=== PATIENT | female | born 1990 | race African-American/Black ===

== ENCOUNTER 2016-10-20 10:36 | Emergency (ER) | payer OTHER ==
[~2016-10-20] VITALS: Ht 154.9 cm; Wt 69.0 kg
[~2016-10-20 10:36] MED LIST: ACYCLOVIR800 MG PO; ALPRAZOLAM0.25 MG; AMBIEN5 MG; AMOXICILLIN500 MG PO; BACLOFEN10 MG PO; BACTRIM DS1 TAB PO; BENADRYL25 MG OR; BENZOYL PER EX; BENZOYL PEROXIDE TOP; CEPH500C57 OR; CIPRO500 MG OR; CLEOCIN VAG2 % VA; CLINDAMYCIN2 % VA; CYMBALTA30 MG PO; DURAGESIC25 MCG/PAT TD; FLEXERIL5 M1 PO; GABAPENTIN100 MG PO; HYDROCHLOROT25 MG PO; HYDROCO/APAP1 T12 OR; KEFLEX500 MG PO; KENALOG15 GM/TUBE EX; LACTULOSE PO; LEVOTHYROXIN75 MC1 PO; LEVOTHYROXIN75 MCG OR; LEVOTHYROXIN75 MCG PO; LEVOTHYROXIN88 MC1 PO; METHADONE5 M1 OR; MONISTAT 72 % VA; MORPHINE SUL15 MG OR; MORPHINE SULFAT15 M1 OR; MUPIROCIN2 % EX; MYCOLOG30 GM EX; NEURONTIN300 MG PO; NO HOME MEDS; OMNICEF300 MG OR; OMNICEF300 MG PO; PERCOCET 5/321 COMBO PO; PRILOSEC20 MG PO; PROAIR HFA IN; PYRIDIUM200 MG PO; ROBAXIN-750750 MG OR; SEASONIQUE; SYNTHROID50 MCG PO; SYNTHROID75 MCG OR; SYNTHROID88 MCG OR; TIZANIDINE4 MG PO; TRAMADOL HYDROC50 MG PO; VALIUM2 MG PO; VALIUM5 MG; XANAX0.25 MG PO; ZOLOFT50 MG PO; [UNRECOGNIZED DRUG - OTHER] EX; [UNRECOGNIZED DRUG - OTHER] PO
[2016-10-20] MEDS ORDERED: PENICILLN VK500 MG PO (11:03)
[2016-10-20] MEDS ORDERED: LORTAB 5-325 MG1 TAB PO (11:03)
[2016-10-20 11:05] VITALS: BP 108/68
== END 2016-10-20 11:05 | disposition home or self-care (01) | DRG 159 ==
LOC: ED 10:36
DX: K08.89 Other specified disorders of teeth and supporting structures (principal)

== ENCOUNTER 2022-02-17 14:10 | Emergency (ER) | payer OTHER ==
[~2022-02-17] VITALS: Ht 154.9 cm; Wt 60.0 kg
[~2022-02-17 14:10] MED LIST changes: +LORTAB 5-325 MG1 TAB PO; +PENICILLN VK500 MG PO
[2022-02-17] MEDS ORDERED: ZPAK PO (15:23)
[2022-02-17] MEDS ORDERED: CEPHALEXIN500 M1 PO (15:23)
[2022-02-17 16:07] VITALS: BP 124/79
== END 2022-02-17 15:57 | disposition home or self-care (01) ==
LOC: ED 14:10
DX: J06.9 Acute upper respiratory infection, unspecified (principal); L03.312 Cellulitis of back [any part except buttock and flank]; I10 Essential (primary) hypertension; J45.909 Unspecified asthma, uncomplicated; Z20.822 Contact with and (suspected) exposure to COVID-19

== ENCOUNTER 2022-11-29 13:39 | Emergency (ER) | payer OTHER ==
[~2022-11-29 13:39] MED LIST changes: +CEPHALEXIN500 M1 PO; +ZPAK PO
== END 2022-11-29 14:32 | disposition left against medical advice (07) ==
LOC: ED 13:39 → LWOBS 14:32 → ED 14:32
DX: Z53.21 Procedure and treatment not carried out due to patient leaving prior to being seen by health care provider (principal)